=== PATIENT | female | born 1960 | race Caucasian/White ===

== ENCOUNTER 2024-06-05 20:13 | Emergency (ER) | payer OTHER ==
[2024-06-05] MEDS ORDERED: ONDANSETRON 4 MG/2 ML VIAL ONE (20:39)
[2024-06-05] MEDS ORDERED: MORPHINE 4 MG/ML SYR ONE (20:39)
[2024-06-05] MEDS ORDERED: KETOROLAC 30 MG/ML INJ ONE (20:39)
[2024-06-05] MEDS ORDERED: NA CHLORIDE 0.9% 1,000 ML ONE (20:40)
[2024-06-05 20:43] LABS: Absolute Eosinophils 0.1 K/uL (0-0.5); Absolute Lymphocytes (CBC) 0.9 K/uL (0.7-4.9); Absolute Monocytes 0.6 K/uL (0.1-1.3); Absolute Neutrophil 4.1 K/uL (1.8-8.0); Basophils % 0.6 % (0-1.3); Eosinophils % 2.2 % (0-4.4); Hematocrit 36.9 % (36.0-45.0); Hemoglobin 12.2 g/dL (12.0-15.0); Lymphocytes % 15.8 % (15.3-44.8); MCH 28.7 pg (27.0-35.0); MCHC 32.9 g/dL (32.0-36.0); MCV 87.2 fL (80-100); MPV 7.6 fL (7.6-11.3); Monocytes % 9.7 % (3.3-12.3); Neutrophils % 71.7 % (41.7-73.7); Nucleated Red Blood Cells % 0.1 % (0-0); Platelets 222 thou/uL (152-406); RBC Red Blood Cell Count 4.23 M/uL (3.86-4.86); Red Cell Distribution Width 14.2 % (12.1-15.2)
[2024-06-05 20:59] LABS: Albumin 2.9 g/dL (3.4-5.0); Albumin/Globulin Ratio 0.8 (1.1-1.8); Anion Gap 9.8 mEq/L (5.0-15.0); Bilirubin Total 0.5 mg/dL (0.2-1.0); Globulin 3.7 g/dL (2.3-3.5); Potassium 3.8 mEq/L (3.5-5.1); Protein, Total 6.6 g/dL (6.4-8.2)
[2024-06-05] MEDS ORDERED: ACETAMINOPHEN 500 MG TAB ONE (21:01)
[2024-06-05 21:32] LABS: Specific Gravity 1.017 (1.005-1.030); Urine Bacteria None Seen /HPF (<20); Urine Bilirubin NEGATIVE (Negative); Urine Blood 3+ (OVER) (Negative); Urine Clarity Extremely Turbid (Clear); Urine Color Red (Yellow); Urine Crystals Unidentified Moderate /HPF (None Seen); Urine Culture Reflex Order REFLEXED; Urine Glucose NEGATIVE (Negative); Urine Ketones NEGATIVE (Negative); Urine Microscopic Reflex YN ORDER UMIC; Urine Nitrite NEGATIVE (Negative); Urine Protein 2+ (Negative); Urine RBC >50 /HPF (None Seen); Urine Urobilinogen Normal (Normal); Urine WBC >50 /HPF (<5); Urine WBC Clump Many /HPF (None Seen); Urine Yeast (Budding) Few /HPF (None Seen); Urine pH 5.5 (5.0-7.0)
--- NOTE | 2024-06-05 21:36 | RAD REPORT ---
EXAMINATION: CT ABDOMEN AND PELVIS WITHOUT CONTRAST CLINICAL INDICATION: Female, 63 years old.L flank pain, recent neph tube removal, has stent TECHNIQUE: CT abdomen and pelvis was performed, without IV contrast, as per department protocol. Axia l, sagittal and coronal reconstructions were obtained. One or more of the following dose reduction techniques were used: Automated exposure control, adjustment of the mA and/or kV according to the pat ient size, and/or iterative reconstruction. Unless otherwise specified, incidental findings do not require dedicated imaging follow-up. [id number]. IV CONTRAST: Not administered. COMPARISON: 04/06/2019 FINDINGS: The lack of intravenous contrast limits the sensitivity of this exam for evaluation of solid visceral organs, vascular structures, and retroperitoneum. LOWER CHEST: No acute process identified.No significant pericardial effusion. UPPER GI: Surgical changes from a partial gastrectomy. LIVER: Mild intrahepatic biliary ductal dilatation. No focal mass. GALLBLADDER/BILE DUCTS: Cholecystectomy with increased extrahepatic biliary duct dilatation. The comm on bile duct measures approximately 16 mm, previously closer to 9 mm.? PANCREAS: No mass, ductal dilation, or jm-pancreatic fluid. SPLEEN: Unremarkable. ADRENALS: No adrenal masses. KIDNEYS AND URETERS: Mild left-sided hydronephrosis. Left ureteral stent in place.Limited evaluation for renal lesions in the absence of IV contrast.Left renal calculi.Left perinephric stranding, particularly along the lower pole which may be from recent nephrostomy tube removal per the history. No significant perinephric hematoma.. ABDOMINAL AORTA AND OTHER VESSELS: Moderate atherosclerotic changes without aortic aneurysm. PERITONEUM: No abnormal free fluid. No free air. LYMPH NODES: No pathologic lymphadenopathy. ABDOMINAL WALL: Unremarkable SMALL BOWEL/COLON: Nonspecific small bowel fluid present in the lower abdomen. No bowel obstruction.A ppendix absent. Moderate formed stool burden. URINARY BLADDER: Underdistended but grossly unremarkable. REPRODUCTIVE ORGANS: No pathologic process. MUSCULOSKELETAL: L4-S1 fusion. ADDITIONAL FINDINGS: None. IMPRESSION: Mild left-sided hydronephrosis despite the presence of the ureteral stent though it does appear to be in satisfactory position. Left nephrolithiasis. No left ureteral calculi. Increased extra hepatic biliary duct dilatation. Correlate with LFTs. While this could be secondary t o the postcholecystectomy state, choledocholithiasis cannot be excluded. MRCP could further evaluate. Nonspecific fluid present within the small bowel could reflect a mild enteritis. No bowel obstruction .
--- NOTE | 2024-06-05 22:08 | RAD REPORT ---
Abdomen Exam Limited: 06/05/2024 9:53 PM CLINICAL HISTORY: cbd evaluation STUDY: Limited right upper quadrant ultrasound of abdomen. COMPARISON: Prior films compared to CT Abdomen study dated same-day FINDINGS: Liver: Hepatic steatosis. Bile ducts: Extrahepatic biliary ductal dilatation which may be from the post-cholecystectomy state. Common bile duct measures 16 mm. Gallbladder: Surgically absent. IMPRESSION: Extra hepatic biliary ductal dilatation with common bile duct measuring 16mm. This is more than typic ally seen with the postcholecystectomy state. Correlate with LFTs. Could consider MRCP for further evaluation.
--- NOTE | 2024-06-05 23:35 | EDPHYS ---
Physician Documentation [facility] Name: Barbara Mcdaniels Age: 63 yrs Sex: Female : 1960 Arrival Date: 06/05/2024 Time: 20:13 Bed 17 Private MD: ED Physician Art Rosario HPI: 06/05 20:31 This 63 yrs old Female presents to ER via Ambulatory with complaints of Post ec2 Surgical Pain. 20:31 Patient arrives today for evaluation of left leg pain and hematuria. Patient reports ec2 that she has a history of nephrolithiasis, had a recent ureteral stent along with a recent nephrostomy tube. Nephrostomy tube was removed 2 days ago. Patient reports she is having worsening left-sided flank pain, hematuria.. Historical: - Allergies: 20:28 Codeine; bm8 20:28 Sulfa (Sulfonamide Antibiotics); bm8 20:28 Bactrim; bm8 - Home Meds: 20:28 Unable to obtain [Active]; bm8 - PMHx: 20:28 Back pain; Fibromyalgia; Migraines; RA (Migraines); bm8 - PSHx: 20:28 left ankle repair (Migraines); Lithotripsy; bm8 - Immunization history:: Adult Immunizations up to date. - Infectious Disease History:: Denies. - Social history:: Smoking status: Patient denies any tobacco usage or history of. ROS: 23:35 Constitutional: as per hpi ec2 Exam: 20:32 Constitutional: GEN: NAD Head: atraumatic Eyes: EOMI Ears: External ears are ec2 normal. CV: regular rate LUNGS: no respiratory distress ABD: non-distended, left flank with sutured postoperative site without erythema or discharge appreciated SKIN: no evidence of rashes MSK: no evidence of trauma Vital Signs: 20:27 BP 125 / 106; Pulse 94; Resp 18; Temp 99.3; Pulse Ox 100% ; Weight 83.91 kg; Height 5 bm8 ft. 4 in. ; Pain 10/10; 20:45 BP 154 / 74; Pulse 93; Resp 18; Pulse Ox 100% on R/A; Pain 10/10; rg5 21:20 BP 107 / 54; Pulse 88; Resp 17; Pulse Ox 98% on R/A; Pain 5/10; rg5 22:21 BP 119 / 66; Pulse 67; Resp 18; Pulse Ox 99% on R/A; Pain 5/10; rg5 23:16 BP 116 / 58; Pulse 77; Resp 17; Pulse Ox 100% on R/A; Pain 5/10; rg5 20:27 Body Mass Index 31.75 (83.91 kg, 162.56 cm) bm8 20:27 Pain Scale: Adult bm8 20:45 Pain Scale: Adult rg5 21:20 Pain Scale: Adult rg5 22:21 Pain Scale: Adult rg5 23:16 Pain Scale: Adult rg5 MDM: 20:21 Medical Screening Exam initiated ec2 20:33 Data reviewed: vital signs, nurses notes. ED course: Patient arrives today for left ec2 flank pain. Examination yields abdominal flank findings as above. Will obtain lab work, urine studies, CT imaging. DDx includes sequela of patient's stent removal, nephrolithiasis. 23:33 ED course: Metabolic profile shows elevated liver profile, within normal ranges total ec2 bili of 0.5. CBC is reassuring. CT abdomen pelvis showed left-sided hydronephrosis with appropriately placed ureteral stent, enlargement in the extrahepatic biliary duct. Ultrasound shows enlargement of the CBD at 1.6 cm. Given the abnormality in the LFTs and the enlarged CBD, will transfer the patient to MR capable facility in GI capable facility. Given patient had recent nephrostomy with [facility] will transfer there. Will also give Zosyn as well.. 06/06 01:23 ED course: I discussed the case with urology as well as hospitalist, GI agreed to ec2 consult. Will transfer to [facility] for continuity of care, further GI evaluation and urology evaluation. Patient updated regarding plan of care and agreeable.. 06/05 20:22 Order name: CBC with Diff; Complete Time: 20:56 ec2 06/05 20:22 Order name: CMP; Complete Time: 21:37 ec2 06/05 20:22 Order name: Lipase; Complete Time: 21:37 ec2 06/05 20:22 Order name: Urinalysis w/ reflexes; Complete Time: 21:37 ec2 06/05 21:39 Order name: Urine Culture EDNH 06/05 20:31 Order name: CT Abd/Pelvis - Without Contrast; Complete Time: 21:37 ec2 06/05 21:39 Order name: US Abdomen Limited; Complete Time: 22:17 ec2 06/05 20:22 Order name: IV Saline Lock; Complete Time: 20:47 ec2 06/05 20:22 Order name: Labs collected and sent; Complete Time: 20:47 ec2 06/06 01:42 Order name: Misc. Order: 4mg IV morphine prior to transfer; Complete Time: 02:28 ec2 Administered Medications: 06/05 20:32 CANCELLED (Physician Discretion): ondansetron 4 mg IVP once; over 2 minutes ec2 20:47 Drug: TORadol - Ketorolac IVP 15 mg IVP once Route: IVP; Site: right antecubital; rg5 21:08 Follow up: Response: No adverse reaction; Pain is decreased rg5 20:47 Drug: morphine IVP or IV 4 mg IVP once over 4 mins Route: IVP; Infused Over: 4 mins; rg5 Site: right antecubital; 21:08 Follow up: Response: No adverse reaction; Pain is decreased rg5 20:47 Drug: NS 0.9% IV 1000 ml IV at 1 bolus Per protocol; to be given as a bolus over 60 rg5 minutes Route: IV; Rate: 1 bolus; Site: right antecubital; 22:30 Follow up: IV Status: Completed infusion; IV Intake: 1000ml rg5 21:09 Drug: Acetaminophen PO 1000 mg PO once Route: PO; rg5 22:14 Follow up: Response: No adverse reaction; Pain is decreased rg5 06/06 00:28 Drug: Piperacillin-Tazobactam IVPB 3.375 grams IVPB once over 60 mins; (mix in NS 100 rg5 mL) Route: IVPB; Infused Over: 60 mins; Site: right antecubital; 01:30 Follow up: IV Status: Completed infusion; IV Intake: 100ml rg5 00:28 Drug: morphine IVP or IV 4 mg IVP once over 4 mins Route: IVP; Infused Over: 4 mins; rg5 Site: right antecubital; 01:00 Follow up: Response: No adverse reaction; Pain is decreased rg5 02:25 Drug: morphine IVP or IV 4 mg IVP once over 4 mins Route: IVP; Infused Over: 4 mins; rg5 Site: right antecubital; 02:27 Follow up: Response: No adverse reaction; Pain is decreased rg5 Disposition Summary: 06/05/24 23:35 Transfer Ordered Notes: Transfer Location: Other Acute Care Facility ec2 Reason: Higher level of care ec2 Condition: Stable ec2 Problem: an acute exacerbation ec2 Symptoms: have improved ec2 Accepting Physician: transferring doc(06/06/24 02:31) rg5 Diagnosis - Kidney stones, recent nephrostomy tube, ureteral stent ec2 - Common bile duct enlargement at 1.6 cm, elevated liver enzymes ec2 - Upper abdominal pain, unspecified ec2 Forms: - Medication Reconciliation Form ec2 - SBAR form ec2 Signatures: Dispatcher [employer] EDMS Art Rosario MD MD ec2 Dion Linares, RN RN bm8 Lawrence Sheffield, CARLOS RN rg5 Corrections: (The following items were deleted from the chart) 06/05 20:23 20:23 CBC+H.LAB.BRZ ordered. EDMS EDMS 20:23 20:23 COMPREHENSIVE METABOLIC PANEL+C.LAB.BRZ ordered. EDMS EDMS 20:23 20:23 LIPASE+C.LAB.BRZ ordered. EDMS EDMS 20:23 20:23 Urinalysis+U.LAB.BRZ ordered. EDMS EDMS 20:32 20:22 Ondansetron IVP 4 mg IVP once; over 2 minutes ordered. ec2 ec2 20:39 20:23 Abdomen Pelvis Wo Con+CT.RAD.BRZ ordered. EDMS EDMS 06/06 02:31 06/05 23:35 transferring doc ec2 rg5
--- NOTE | 2024-06-05 23:35 | ER ---
Nurse's Notes [facility] Name: Barbara Mcdaniels Age: 63 yrs Sex: Female : 1960 Arrival Date: 06/05/2024 Time: 20:13 Bed 17 Private MD: Diagnosis: Kidney stones, recent nephrostomy tube, ureteral stent;Common bile duct enlargement at 1.6 cm, elevated liver enzymes;Upper abdominal pain, unspecified Presentation: 06/05 20:27 Chief complaint: Patient states: I had a lithotripsy done Wednesday and the pain is bm8 getting significantly worse since wednesday. Coronavirus screen: At this time, the client does not indicate any symptoms associated with coronavirus-19. Ebola Screen: Patient negative for fever greater than or equal to 101.5 degrees Fahrenheit, and additional compatible Ebola Virus Disease symptoms Patient denies exposure to infectious person. Patient denies travel to an Ebola-affected area in the 21 days before illness onset. No symptoms or risks identified at this time. Initial Sepsis Screen: Does the patient meet any 2 criteria? No. Patient's initial sepsis screen is negative. Does the patient have a suspected source of infection? No. Patient's initial sepsis screen is negative. Risk Assessment: Do you want to hurt yourself or someone else? Patient reports no desire to harm self or others. Onset of symptoms was June 03, 2024. 20:27 Method Of Arrival: Ambulatory bm8 20:27 Acuity: SHAWN 3 bm8 Triage Assessment: 20:28 General: Appears distressed, uncomfortable, Behavior is calm, cooperative, appropriate bm8 for age. Pain: Complains of pain in left mid back Pain currently is 10 out of 10 on a pain scale. EENT: No deficits noted. No signs and/or symptoms were reported regarding the EENT system. Neuro: No deficits noted. Level of Consciousness is awake, alert, obeys commands, Oriented to person, place, time, situation, Appropriate for age. Cardiovascular: Denies chest pain, Capillary refill < 3 seconds in bilateral fingers Patient's skin is warm and dry. Respiratory: Airway is patent Respiratory effort is even, unlabored. : Reports pain in left flank(s), pt states she is urinating celi blood. Historical: - Allergies: 20:28 Codeine; bm8 20:28 Sulfa (Sulfonamide Antibiotics); bm8 20:28 Bactrim; bm8 - Home Meds: 20:28 Unable to obtain [Active]; bm8 - PMHx: 20:28 Back pain; Fibromyalgia; Migraines; RA (Migraines); bm8 - PSHx: 20:28 left ankle repair (Migraines); Lithotripsy; bm8 - Immunization history:: Adult Immunizations up to date. - Infectious Disease History:: Denies. - Social history:: Smoking status: Patient denies any tobacco usage or history of. Screenin:47 [facility] ED Fall Risk Assessment (Adult) History of falling in the last 3 months, rg5 including since admission No falls in past 3 months (0 pts) Confusion or Disorientation No (0 pts) Intoxicated or Sedated No (0 pts) Impaired Gait No (0 pts) Mobility Assist Device Used No (0 pt) Altered Elimination No (0 pt) Score/Fall Risk Level 0 - 2 = Low Risk Oriented to surroundings, Maintained a safe environment, Provided non-skid footwear. Abuse screen: Denies threats or abuse. Nutritional screening: No deficits noted. Tuberculosis screening: No symptoms or risk factors identified. Assessment: 20:47 General: Appears uncomfortable, Behavior is cooperative, appropriate for age, crying. rg5 Pain: Complains of pain in abdomen Pain currently is 10 out of 10 on a pain scale. Quality of pain is described as aching. Neuro: Level of Consciousness is awake, alert, obeys commands, Oriented to person, place, time. Cardiovascular: Denies chest pain. Cardiovascular: Patient's skin is warm and dry. Respiratory: Airway is patent Trachea midline Respiratory effort is even, unlabored. GI: Abdomen is round non-distended, Abd is soft and non tender. : No signs and/or symptoms were reported regarding the genitourinary system. EENT: No deficits noted. Derm: Skin is intact, Skin is dry, Skin is normal, Skin temperature is warm. Musculoskeletal: No signs and/or symptoms reported regarding the musculoskeletal system. Circulation, motion, and sensation intact. Range of motion: intact in all extremities. 21:25 Reassessment: Patient and/or family updated on plan of care and expected duration. Pain rg5 level reassessed. Patient is alert, oriented x 3, equal unlabored respirations, skin warm/dry/pink. Patient states symptoms have improved. 22:16 Reassessment: No changes from previously documented assessment. Patient and/or family rg5 updated on plan of care and expected duration. Pain level reassessed. Patient is alert, oriented x 3, equal unlabored respirations, skin warm/dry/pink. 23:18 Reassessment: Patient and/or family updated on plan of care and expected duration. Pain rg5 level reassessed. Patient is alert, oriented x 3, equal unlabored respirations, skin warm/dry/pink. Vital Signs: 20:27 BP 125 / 106; Pulse 94; Resp 18; Temp 99.3; Pulse Ox 100% ; Weight 83.91 kg; Height 5 bm8 ft. 4 in. ; Pain 10/10; 20:45 BP 154 / 74; Pulse 93; Resp 18; Pulse Ox 100% on R/A; Pain 10/10; rg5 21:20 BP 107 / 54; Pulse 88; Resp 17; Pulse Ox 98% on R/A; Pain 5/10; rg5 22:21 BP 119 / 66; Pulse 67; Resp 18; Pulse Ox 99% on R/A; Pain 5/10; rg5 23:16 BP 116 / 58; Pulse 77; Resp 17; Pulse Ox 100% on R/A; Pain 5/10; rg5 20:27 Body Mass Index 31.75 (83.91 kg, 162.56 cm) bm8 20:27 Pain Scale: Adult bm8 20:45 Pain Scale: Adult rg5 21:20 Pain Scale: Adult rg5 22:21 Pain Scale: Adult rg5 23:16 Pain Scale: Adult rg5 ED Course: 20:15 Patient arrived in ED. jj6 20:15 Art Rosario MD is Attending Physician. ec2 20:24 Lawrence Sheffield, CARLOS is Primary Nurse. rg5 20:28 Triage completed. bm8 20:28 Arm band placed on right wrist. bm8 20:47 Patient has correct armband on for positive identification. Client placed on continuous rg5 cardiac and pulse oximetry monitoring. NIBP monitoring applied. final finisher on. Pulse ox on. Door closed. Noise minimized. Warm blanket given. 20:47 No provider procedures requiring assistance completed. Inserted saline lock: 20 gauge rg5 in right antecubital area, using aseptic technique. Blood collected. Flushed with 10 mL NS. 21:13 CT Abd/Pelvis - Without Contrast In Process Unspecified. EDMS 21:55 US Abdomen Limited In Process Unspecified. EDMS 06/06 00:05 initiated transfer with paige shelton. km 00:59 doc to doc. kmf 01:20 second doc to doc. kmf 01:55 pt was accepted to [facility] - [facility]. Number for nurse to nurse report [facility] [phone]. Accepting Acosta Lawler \T\ [id number]. Accepting admin Shon Chamberlain \T\[id number]. [facility] to transfer pt. 01:57 Patient transferred, IV remains in place. intact, No redness/swelling at site. rg5 01:58 Provided Education on: needs for transfer. rg5 02:24 EMS ARRIVED. [facility] Administered Medications: 06/05 20:32 CANCELLED (Physician Discretion): ondansetron 4 mg IVP once; over 2 minutes ec2 20:47 Drug: TORadol - Ketorolac IVP 15 mg IVP once Route: IVP; Site: right antecubital; rg5 21:08 Follow up: Response: No adverse reaction; Pain is decreased rg5 20:47 Drug: morphine IVP or IV 4 mg IVP once over 4 mins Route: IVP; Infused Over: 4 mins; rg5 Site: right antecubital; 21:08 Follow up: Response: No adverse reaction; Pain is decreased rg5 20:47 Drug: NS 0.9% IV 1000 ml IV at 1 bolus Per protocol; to be given as a bolus over 60 rg5 minutes Route: IV; Rate: 1 bolus; Site: right antecubital; 22:30 Follow up: IV Status: Completed infusion; IV Intake: 1000ml rg5 21:09 Drug: Acetaminophen PO 1000 mg PO once Route: PO; rg5 22:14 Follow up: Response: No adverse reaction; Pain is decreased rg5 06/06 00:28 Drug: Piperacillin-Tazobactam IVPB 3.375 grams IVPB once over 60 mins; (mix in NS 100 rg5 mL) Route: IVPB; Infused Over: 60 mins; Site: right antecubital; 01:30 Follow up: IV Status: Completed infusion; IV Intake: 100ml rg5 00:28 Drug: morphine IVP or IV 4 mg IVP once over 4 mins Route: IVP; Infused Over: 4 mins; rg5 Site: right antecubital; 01:00 Follow up: Response: No adverse reaction; Pain is decreased rg5 02:25 Drug: morphine IVP or IV 4 mg IVP once over 4 mins Route: IVP; Infused Over: 4 mins; rg5 Site: right antecubital; 02:27 Follow up: Response: No adverse reaction; Pain is decreased rg5 Medication: 06/05 20:47 VIS not applicable for this client. rg5 Intake: 22:30 IV: 1000ml; Total: 1000ml. rg5 06/06 01:30 IV: 100ml; Total: 1100ml. rg5 Outcome: 06/05 23:35 ER care complete, transfer ordered by . ec2 06/06 02:30 Transferred by ground EMS to [facility], rg5 Condition: stable Discharge instructions given to patient, family, Instructed on the need for transfer, 02:31 Patient left the ED. rg5 Signatures: Dispatcher [employer] Christy [email or web address] Art Rosario MD MD ec2 Cece Huynh [facility] Dion Linares, RN RN bm8 Lawrence Sheffield RN RN rg5
[2024-06-06] MEDS ORDERED: MORPHINE 4 MG/ML SYR ONE ×2 (00:17→01:49)
[2024-06-06] MEDS ORDERED: NA CHLORIDE 0.9% 100 ML ONE (00:18)
[2024-06-06] MEDS ORDERED: PIPERACIL/TAZO 3.375 GM VIAL IV ONE (00:18)
[2024-06-06 02:39] VITALS: TEMP 99.3
[2024-06-06 02:44] VITALS: BP 116/58; O2SAT 100
== END 2024-06-06 02:31 ==
LOC: ER 20:13
DX: N20.0 Calculus of kidney (principal); K83.8 Other specified diseases of biliary tract; Z98.890 Other specified postprocedural states; R74.01 Elevation of levels of liver transaminase levels; Z96.0 Presence of urogenital implants
CPT/HCPCS: 87088; 85025; 81001; 87086; 36415; 83690; 80053; 74176; 76705; J2543; J2405; J7030